=== PATIENT | female | born 1995 | race Caucasian/White ===

== ENCOUNTER 2016-09-21 19:41 | Emergency (ER) | payer SELFPAY ==
[~2016-09-21] VITALS: Ht 154.9 cm; Wt 54.7 kg
[2016-09-21 19:49] VITALS: BP 113/70; PULSE 72; RESP 14; TEMP 98.7; O2SAT 98
[2016-09-21] MEDS ORDERED: Inhaler (20:13)
[2016-09-21] MEDS ORDERED: ALEV220T14 PO (20:13)
[2016-09-21] MEDS ORDERED: cefTRIAXone INJ 1,000 MG in SODIUM CHLORIDE 0.9% INJ 100 ML IV ONE (20:45)
[2016-09-21] MEDS ORDERED: KETOROLAC TROMETHAMINE 30 MG/ML (IVP) VIAL IV PUSH ONE (21:00)
[2016-09-21 21:10] VITALS: BP 113/61; PULSE 67; RESP 18; TEMP 99.1; O2SAT 98
[2016-09-21 21:20] LABS: AUTOMATED NEUTROPHIL # 7.1 TH/MM3 (1.8-7.7); BASOPHIL % 0.5 % (0.0-2.0); EOSINOPHIL # 0.1 TH/MM3 (0-0.4); EOSINOPHIL % 0.6 % (0.0-4.0); HEMATOCRIT 36.4 % (35.0-46.0); HEMO FLAGS DIFF FINAL; LYMPH % 19.2 % (9.0-44.0); LYMPHOCYTE # 1.8 TH/MM3 (1.0-4.8); MEAN CELL VOLUME 93.2 FL (80.0-100.0); MEAN CORPUSCULAR HEMOGLOBIN 32.4 PG (27.0-34.0); MEAN CORPUSCULAR HGB CONC 34.8 % (32.0-36.0); MONO % 5.5 % (0.0-8.0); NEUT % 74.2 % (16.0-70.0); PLATELET COUNT 249 TH/MM3 (150-450); RED BLOOD COUNT 3.91 MIL/MM3 (4.00-5.30); RED CELL DISTRIBUTION WIDTH 11.5 % (11.6-17.2); WHITE BLOOD COUNT 9.5 TH/MM3 (4.0-11.0)
--- NOTE | 2016-09-21 21:48 | PD ---
HPI Chief Complaint: Abdominal Pain Time Seen by Provider: 20:20 Travel History International Travel<30 days: No Contact w/Intl Traveler<30days: No Traveled to known affect area: No History of Present Illness HPI The 20 year-old woman presents to the emergency department status post surgical about 4 days ago. She was at about 6 weeks gestational age. She hadn' t done it in clinic and [place]. She states initially she had stopped bleeding. She started having heavy bleeding over the past day or so. She describes changing her pad twice in one day. She also describes worsening cramping abdominal pain. She is worried because she she did not get placed on any antibiotics and thinks she may have needed prophylactic antibiotics. She otherwise had been feeling generally well and healthy. She also states along with this she's had some lightheadedness, and some palpitations. She denies any other complaints. History Past Medical History Narrative Medical Asthma Tetanus Vaccination: Unknown Influenza Vaccination: No LMP: June 2016 Social History Alcohol Use: No Tobacco Use: No Allergies-Medications (Allergen,Severity, Reaction): Coded Allergies: Doxycycline (Verified Allergy, Severe, 09/21/16) Unknown reaction - was given medicine as child and parents reported she is allergic Reported Meds & Prescriptions Reported Meds & Active Scripts Active Reported [Inhaler] Aleve Arthritis (Naproxen Sodium) 220 Mg Tab 440 Mg PO BID PRN Review of Systems Except as stated in HPI: all other systems reviewed are Neg Physical Exam Narrative GENERAL: Well-appearing 20 year-old woman, no acute distress. SKIN: Focused skin assessment warm/dry. HEAD: Atraumatic. Normocephalic. CARDIOVASCULAR: Regular rate and rhythm. No murmur appreciated. RESPIRATORY: No accessory muscle use. Clear to auscultation. Breath sounds equal bilaterally. GASTROINTESTINAL: Abdomen is flat. She has moderate diffuse lower abdominal tenderness with voluntary guarding. MUSCULOSKELETAL: No obvious deformities. No clubbing. No cyanosis. No edema. NEUROLOGICAL: Awake and alert. No obvious cranial nerve deficits. Motor grossly within normal limits. Normal speech. PSYCHIATRIC: Appropriate mood and affect; insight and judgment normal. : Normal external female genitalia. Dark red blood in her vaginal vault. Diffuse pelvic tenderness. No palpable uterine enlargement or adnexal masses. 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 (09/21/16 ) Complete Blood Count With Diff (09/21/16 20:38) Ceftriaxone Inj (Rocephin Inj) (09/21/16 20:45) Ketorolac Inj (Toradol Inj) (09/21/16 21:00) Labs Laboratory Tests Test 09/21/16 21:05 White Blood Count 9.5 TH/MM3 Red Blood Count 3.91 MIL/MM3 Hemoglobin 12.7 GM/DL Hematocrit 36.4 % Mean Corpuscular Volume 93.2 FL Mean Corpuscular Hemoglobin 32.4 PG Mean Corpuscular Hemoglobin 34.8 % Concent Red Cell Distribution Width 11.5 % Platelet Count 249 TH/MM3 Mean Platelet Volume 8.0 FL Neutrophils (%) (Auto) 74.2 % Lymphocytes (%) (Auto) 19.2 % Monocytes (%) (Auto) 5.5 % Eosinophils (%) (Auto) 0.6 % Basophils (%) (Auto) 0.5 % Neutrophils # (Auto) 7.1 TH/MM3 Lymphocytes # (Auto) 1.8 TH/MM3 Monocytes # (Auto) 0.5 TH/MM3 Eosinophils # (Auto) 0.1 TH/MM3 Basophils # (Auto) 0.0 TH/MM3 CBC Comment DIFF FINAL Differential Comment MDM Medical Decision Making Medical Screen Exam Complete: Yes Emergency Medical Condition: Yes Interpretation(s) LABS: CBC is unremarkable. Pelvic ultrasound: Thickening me tremors and the possibility of retained products of conception. Differential Diagnosis Retained products of conception, endometritis, uterine perforation, expected postop course, other Narrative Course Medical decision making Is a 20-year-old woman presents emergency department with lower abdominal pain, bleeding, associated with some lightheadedness and tingling. Diagnosis Primary Impression: Pelvic pain in female Additional Impression: Endometritis Referrals: Devan Ramos MD 2 days Patient Instructions: General Instructions Additional Instructions: Take doxycycline as prescribed. Follow up with Dr. Jj on Friday. Return to the emergency department for any worsening abdominal pain, high fevers , bleeding more than 1 pad per hour, or any other new or worsening symptoms. Med/Other Pt SpecificInfo: Prescription(s) given Disposition: 01 DISCHARGE HOME Condition: Stable Ismael Madison MD Sep 21, 2016 21:48
[2016-09-21 22:15] VITALS: BP 115/65; PULSE 71; RESP 17; O2SAT 98
--- NOTE | 2016-09-21 22:19 | RADRPT ---
EXAM DATE/TIME: 09/21/2016 21:41 [facility] COMPARISON: No previous studies available for comparison. INDICATIONS : Pelvic pain and bleeding post 09/17/16. MEDICAL HISTORY : . . Asthma. SURGICAL HISTORY : Surgical at 6 weeks. ENCOUNTER: Initial ACUITY: 4-6 days PAIN SCORE: 9/10 LOCATION: Bilateral pelvis MEASUREMENTS: UTERUS: 8.9 x 6.8 x 4.5 cm ENDOMETRIAL STRIPE: 20 mm RIGHT OVARY: Non visualized LEFT OVARY: 2.9 x 2.4 x 1.0 cm FINDINGS: UTERUS: There is thickened endometrium raising the possibility of retained products of conception. Clinical c orrelation is recommended. RIGHT OVARY: Nonvisualized. LEFT OVARY: Ovary contains no mass or significant cystic lesion. MISCELLANEOUS: No free fluid. CONCLUSION: Thickened endometrium raising the possibility of retained products of conception. Cli nical correlation is recommended. Normal left ovary. Nonvisualization of the right ovary. No free flu id within the cul-de-sac or adnexal mass. Usman Weinstein MD on September 21, 2016 at 22:15 Board Certified Radiologist. This report was verified electronically.
[2016-09-21 23:05] VITALS: BP 122/76; PULSE 74; RESP 16; O2SAT 97
[2016-09-21] MEDS ORDERED: METR-1 PO (23:29)
== END 2016-09-22 00:06 | disposition home or self-care (01) ==
LOC: PHED 19:41
DX: N71.9 Inflammatory disease of uterus, unspecified (principal); R10.2 Pelvic and perineal pain; R00.2 Palpitations; R42 Dizziness and giddiness; Z98.890 Other specified postprocedural states
CPT/HCPCS: 76856; 85025; 96365; 96375; 99285; J0696; J1885